=== PATIENT | female | born 1940 | race Caucasian/White ===

== ENCOUNTER → 2016-06-15 | Outpatient (CLI) | payer OTHER ==
[~2016-06-15] MED LIST: CHOL100010 PO; CYAN100028 PO; DIVA250T4 PO; FLUO20CA35 PO; LEVO100T PO; OLAN-102 PO
--- NOTE | 2016-06-15 15:22 | MAMMOGRAPHY REPORT ---
BILATERAL DIGITAL SCREENING MAMMOGRAM WITH CAD: 06/15/2016 TECHNIQUE: Current study was also evaluated with a Computer Aided Detection (CAD) system. Bilatera l CC and MLO views were obtained. COMPARISON: Comparison is made to exams dated: 06/10/2015 mammogram, 06/08/2014 mammogram - [facility], and 05/02/2010 mammogram. BREAST COMPOSITION: The tissue of both breasts is heterogeneously dense, which may obscure small ma sses. FINDINGS: No suspicious masses, calcifications, or areas of architectural distortion are noted in e ither breast. There has been no significant interval change compared to prior exams. IMPRESSION: ACR BI-RADS CATEGORY 1: NEGATIVE There is no mammographic evidence of malignancy. A 1 year screening mammogram is recommended. The p atient will receive written notification of the results. Approximately 10% of breast cancers are not detected with mammography. A negative mammographic repor t should not delay biopsy if a clinically suggestive mass is present. Kristy Meyers M.D. ah/:06/15/2016 14:41:10 Material Control Manager: Zena BACA(R)(M), [facility] letter sent: Normal 1/2 BI-RADS Code: ACR BI-RADS Category 1: Negative
== END | disposition home or self-care (01) ==
LOC: C.MAMM 14:21
PROVIDERS: ATTEND Internal Medicine
DX: Z12.31 Encounter for screening mammogram for malignant neoplasm of breast (principal)

== ENCOUNTER → 2016-09-18 | Outpatient (CLI) | payer OTHER ==
[2016-09-18 17:32] LABS: BASO % 0.8 %; BASO ABS # 0.04 K/uL (0-0.2); COMPLETE YES; HEMATOCRIT 37.2 % (37-47); LYMPH % 41.4 %; LYMPH ABS # 2.09 K/uL (1.2-3.4); MEAN CELL VOLUME 97.1 fL (80-100); MEAN CORPUSCULAR HEMOGLOBIN 32.6 pg (25-34); MEAN CORPUSCULAR HGB CONC 33.6 g/dl (32-36); MEAN PLATELET VOLUME 10.9 fL (7.4-10.4); MONO % 7.1 %; NEUT % 49.7 %; PLATELET COUNT 202 K/uL (130-400); RED BLOOD COUNT 3.83 M/uL (4.2-5.4); WHITE BLOOD COUNT 5.05 K/uL (4.8-10.8)
[2016-09-18 18:45] LABS: ALT/SGPT 27 U/L (12-78); BLOOD UREA NITROGEN 11 mg/dl (7-18); BUN/CREATININE RATIO 12.4 (10-20); CALCIUM 8.9 mg/dl (8.5-10.1); CARBON DIOXIDE 27 mmol/L (21-32); CHLORIDE 106 mmol/L (98-107); CREATININE 0.85 mg/dl (0.60-1.20); GLUCOSE 84 mg/dl (70-99); POTASSIUM 3.9 mmol/L (3.5-5.1); SODIUM 142 mmol/L (136-145); TRIGLYCERIDES 73 mg/dl (0-150); VERY LOW DENSITY LIPOPROT CALC 15 mg/dl
[2016-09-18 18:56] LABS: ALB/GLOB RATIO 1.4 (0.9-2); ALKALINE PHOSPHATASE 75 U/L (45-117); AST/SGOT 18 U/L (15-37); CHOLESTEROL 186 mg/dl (0-200); CHOLESTEROL/HDL RATIO 2.6; HDL CHOLESTEROL 72 mg/dl; LDL CHOLESTEROL CALCULATED 99 mg/dl; THYROID STIMULATING HORMONE 0.472 uIu/ml (0.300-4.500)
--- NOTE | 2016-09-25 10:08 | CODING QUERY MEDICAL NECESSITY ---
CQSUPPORTING DIAGNOSIS NEEDED A supporting diagnosis is required for the test/procedure performed on this patient in order for us to be reimbursed by the patient's insurance. Please provide a supporting diagnosis for the following test/procedure listed below next to the test name along with your signature. *If there is no additional diagnosis for this patient that would support the following test/procedure please document that below next to the test/procedure. Test(s)/Procedure(s) that require a supporting diagnosis: DOS 09/18/16 VITAMIN B12 Provider Signature: Date: Thank you Sophia Jennings [employer] Once completed, please kindly fax back to [phone] For questions please call [phone]
== END | disposition home or self-care (01) ==
LOC: C.LAB1850 16:37
PROVIDERS: ATTEND Internal Medicine
DX: E03.9 Hypothyroidism, unspecified (principal); F30.9 Manic episode, unspecified; E78.5 Hyperlipidemia, unspecified; D72.819 Decreased white blood cell count, unspecified; M25.50 Pain in unspecified joint; E55.9 Vitamin D deficiency, unspecified; G62.9 Polyneuropathy, unspecified

== ENCOUNTER → 2016-09-21 | Outpatient (CLI) | payer OTHER | END | disposition home or self-care (01) | LOC: C.MAMM 14:37 | PROVIDERS: ATTEND Internal Medicine | DX: Z87.81 Personal history of (healed) traumatic fracture (principal); M81.0 Age-related osteoporosis without current pathological fracture; M85.89 Other specified disorders of bone density and structure, multiple sites ==

== ENCOUNTER → 2017-06-20 | Outpatient (CLI) | payer OTHER ==
--- NOTE | 2017-06-21 15:26 | MAMMOGRAPHY REPORT ---
BILATERAL DIGITAL SCREENING MAMMOGRAM TOMOSYNTHESIS WITH CAD: 06/20/2017 CLINICAL HISTORY: Routine screening. Patient has no complaints. TECHNIQUE: Breast tomosynthesis in addition to standard 2D mammography was performed. Current study was also evaluated with a Computer Aided Detection (CAD) system. COMPARISON: Comparison is made to exams dated: 06/15/2016 mammogram, 06/10/2015 mammogram, and 5 mammogram - [facility]. BREAST COMPOSITION: The tissue of both breasts is heterogeneously dense, which may obscure small mas ses. FINDINGS: No suspicious masses, calcifications, or areas of architectural distortion are noted in ei ther breast. There has been no significant interval change compared to prior exams. IMPRESSION: ACR BI-RADS CATEGORY 1: NEGATIVE There is no mammographic evidence of malignancy. A 1 year screening mammogram is recommended. The pa tient will receive written notification of the results. Approximately 10% of breast cancers are not detected with mammography. A negative mammographic report should not delay biopsy if a clinically suggestive mass is present. Kristy Meyers M.D. ah/:06/20/2017 15:02:49 [employer] Internship: Sasha BACA(R)(M), [facility] letter sent: Normal 1/2 BI-RADS Code: ACR BI-RADS Category 1: Negative
== END | disposition home or self-care (01) ==
LOC: C.MAMM 14:39
PROVIDERS: ATTEND Internal Medicine
DX: Z12.31 Encounter for screening mammogram for malignant neoplasm of breast (principal)

== ENCOUNTER → 2017-09-24 | Outpatient (CLI) | payer OTHER ==
[2017-09-24 17:33] LABS: BASO % 0.3 %; BASO ABS # 0.02 K/uL (0-0.2); EOS % 0.3 %; EOS ABS # 0.02 K/uL (0-0.5); HEMATOCRIT 38.4 % (37-47); IG# 0.02 K/uL (0.00-0.02); LYMPH % 30.5 %; LYMPH ABS # 2.04 K/uL (1.2-3.4); MEAN CELL VOLUME 93.2 fL (80-100); MEAN CORPUSCULAR HEMOGLOBIN 31.6 pg (25-34); MEAN CORPUSCULAR HGB CONC 33.9 g/dl (32-36); MEAN PLATELET VOLUME 11.1 fL (7.4-10.4); MONO % 6.6 %; MONO ABS # 0.44 K/uL (0.11-0.59); NEUT ABS # 4.14 K/uL (1.4-6.5); PLATELET COUNT 226 K/uL (130-400); RED CELL DISTRIBUTION WIDTH CV 13.1 % (11.5-14.5); RED CELL DISTRIBUTION WIDTH SD 44.6 fL (36.4-46.3); WHITE BLOOD COUNT 6.68 K/uL (4.8-10.8)
[2017-09-24 18:02] LABS: ALBUMIN 3.9 gm/dl (3.4-5.0); ALT/SGPT 33 U/L (12-78); AST/SGOT 21 U/L (15-37); BLOOD UREA NITROGEN 13 mg/dl (7-18); CALCIUM 8.9 mg/dl (8.5-10.1); CARBON DIOXIDE 26 mmol/L (21-32); CREATININE 1.01 mg/dl (0.60-1.20); GLUCOSE 89 mg/dl (70-99); POTASSIUM 3.9 mmol/L (3.5-5.1); SODIUM 138 mmol/L (136-145)
[2017-09-24 18:13] LABS: ALKALINE PHOSPHATASE 87 U/L (45-117); CHOLESTEROL 198 mg/dl (0-200); LDL CHOLESTEROL CALCULATED 107 mg/dl; TOTAL PROTEIN 7.3 gm/dl (6.4-8.2)
== END | disposition home or self-care (01) ==
LOC: C.LAB1850 15:58
PROVIDERS: ATTEND Internal Medicine
DX: E55.9 Vitamin D deficiency, unspecified (principal); D72.819 Decreased white blood cell count, unspecified; F30.9 Manic episode, unspecified; E78.5 Hyperlipidemia, unspecified; E03.9 Hypothyroidism, unspecified

== ENCOUNTER 2019-09-03 16:11 | Observation (INO) ==
[2019-09-03 17:35] LABS: Basophils # (auto) 0.03 K/uL (0-0.2); Basophils % (auto) 0.5 %; Eosinophils # (auto) 0.03 K/uL (0-0.5); Eosinophils % (auto) 0.5 %; Hematocrit (blood only) 39.1 % (37-47); Hemoglobin 13.1 g/dL (12.0-16.0); Immature Granulocytes # (auto) 0.01 K/uL (0.00-0.02); Immature Granulocytes % (auto) 0.2 %; Lymphocytes # (auto) 1.57 K/uL (1.2-3.4); Lymphocytes % (auto) 26.7 %; Mean Corpuscular Hemoglobin 32.3 pg (25-34); Mean Corpuscular Hgb Conc 33.5 g/dL (32-36); Mean Corpuscular Volume 96.5 fL (80-100); Mean Platelet Volume 10.1 fL (7.4-10.4); Monocytes # (auto) 0.28 K/uL (0.11-0.59); Monocytes % (auto) 4.8 %; Neutrophils # (auto) 3.97 K/uL (1.4-6.5); Neutrophils % (auto) 67.3 %; Platelet Count 239 K/uL (130-400); RDW Coefficient of Variation 13.2 % (11.5-14.5); RDW Standard Deviation 46.4 fL (36.4-46.3); Red Blood Count 4.05 M/uL (4.2-5.4); White Blood Count 5.89 K/uL (4.8-10.8)
--- NOTE | 2019-09-03 17:40 | CT Scan Report ---
CT head/brain wo con CLINICAL HISTORY: 78 years-old Female with Stroke evaluation . Acute strokelike symptoms TECHNIQUE: Multiple axial CT images of the head were obtained without contrast. A dose lowering tech nique was utilized adhering to the principles of ALARA. CT DOSE: 537.48 mGy.cm COMPARISON: None. FINDINGS: No acute intracranial hemorrhage, midline shift, intracranial mass, hydrocephalus, territorial ischem ia or abnormal extra-axial collection. Mild patchy white matter hypodensities suggest probable chroni c microvascular ischemic disease. The calvarium is intact. The paranasal sinuses, mastoid air cells, and middle ear cavities are clear . IMPRESSION: No acute intracranial abnormality. ACT 112: Negative or not required by law. The above report was generated using voice recognition software. It may contain grammatical, syntax o r spelling errors. Electronically signed by: Rudi Roach M.D. 09/03/2019 5:39 PM
[2019-09-03 17:43] LABS: INR 1.1 (0.9-1.1); Partial Thromboplastin Ratio 0.9; Partial Thromboplastin Time 25.8 Seconds (21.0-31.0); Prothrombin Time 11.1 Seconds (9.0-12.0)
[2019-09-03 17:52] LABS: Alanine Aminotransferase 29 U/L (12-78); Aspartate Aminotransferase 21 U/L (15-37); BUN Creatinine Ratio 19.4 (10-20); Blood Urea Nitrogen 19 mg/dl (7-18); Calcium 9.6 mg/dl (8.5-10.1); Carbon Dioxide 29 mmol/L (21-32); Chloride 107 mmol/L (98-107); Creatinine Clr Calc Pharmacy 47.4 ml/min; Est GFR (African American) 66.6; Est GFR (Non-African American) 57.4; Glucose 94 mg/dl (70-99); Magnesium 2.3 mg/dl (1.8-2.4); Potassium 3.9 mmol/L (3.5-5.1); Sodium 139 mmol/L (136-145)
[2019-09-03 17:57] LABS: Albumin Globulin Ratio 1.1 (0.9-2); Alkaline Phosphatase 100 U/L (45-117); Bilirubin,Total 0.2 mg/dl (0.2-1); Globulin 3.5 gm/dl (2.5-4.0); Total Protein 7.5 gm/dl (6.4-8.2); Troponin I < 0.015 ng/ml (0-0.045)
--- NOTE | 2019-09-03 19:11 | History & Physical Report ---
Date of Service September 03, 2019 Assessment & Plan (1) TIA (transient ischemic attack): Patient will be admitted under stroke protocol. Check MRI/MRA of the brain and extracranial vessels. Check 2D echo. Continue neurochecks overnight per protocol. Bedside swallowing eval, can advance diet if the patient passes. Currently asymptomatic, PT/OT per protocol. I did discuss medication with the patient, she tells me she has had previous GI bleeding with aspirin and we will therefore hold this for that reason. Consult neurology. Further management as noted below. (2) Hyperlipidemia: Has hyperlipidemia noted in her history but does not appear to be on statin medication. Will check fasting lipids and start patient on Lipitor 40 mg daily. Consider an increase depending on results. (3) Hypothyroidism: Patient on levothyroxine 100 mcg daily, can continue as noted. Check TSH. (4) Bipolar 1 disorder: Patient is on fluoxetine along with Zyprexa nightly as needed. Will order these as well. History of Present Illness Primary Care Provider: Raúl Kong MD This is a 78-year-old female with past medical history of hyperlipidemia, bipolar disorder, depression that presents today complaining of a transient left-sided hemiparesis. Patient is good historian. Patient tells me she was feeling fine when she woke up at approximately 930 this morning. She noted that her left hand was flaccid. She could not move her arm but felt numb up to her left shoulder. She try to get out of bed and noted similar issue with her foot. She had no motor control in her left foot but her leg was only numb. She ambulated to the kitchen and tried heat and apple. At that time she noted that she had right-sided facial droop and was salivating herself. She was unable to treated for. When asked what she did next, she told me she sat down and thought about things for approximately 30 minutes when the symptoms resolved very quickly and completely. She tells me she called her daughter in [place] and discussed the case with her. She recommended calling her doctor. She then called her primary care physician's office and was advised to present to the emergency room for further evaluation. At the time of my evaluation, the patient is having no further neurological symptoms. She is in no cardiopulmonary distress was quietly reading a book. She denies any further facial droop, weakness, or other issues. She also denies any headache. Work-up so far has been negative. Allergies Allergy/AdvReac Type Severity Reaction Status Date / Time Penicillins Allergy Unknown UNKN Verified 09/03/19 17:13 NSAIDS (Non-Steroidal AdvReac Intermediate HX OF ULCER Verified 09/03/19 17:13 Anti-Inflamma ampicillin AdvReac Unknown Verified 09/03/19 17:13 aripiprazole [From Abilify] AdvReac Unknown Verified 09/03/19 17:13 diphenhydramine AdvReac Unknown Verified 09/03/19 17:13 erythromycin base AdvReac Unresponsiv Verified 09/03/19 17:13 e lithium AdvReac Unknown Verified 09/03/19 17:13 Home Medications Home Medications Medication Instructions Recorded Confirmed Type acetaminophen 500 mg tablet 500 - 1,000 mg PO Q6H PRN 03/30/19 09/03/19 History levothyroxine 100 mcg tablet 100 mcg PO DAILY #90 tab 06/22/19 09/03/19 Rx Algae Michael 2 tabs PO BID 09/03/19 09/03/19 History fluoxetine 40 mg PO DAILY 09/03/19 09/03/19 History olanzapine [Zyprexa] 10 mg PO QPM PRN 09/03/19 09/03/19 History Past Med/Surg History Social History Preferred Language: Greenlandic Communication Ability: Effective Visual Impairment: No Limitations Hearing Ability: Normal marital status: Single current occupational status: retired Feels Safe at Home: Yes Smoking Status: Never smoker Hx Alcohol Use: Yes (social) Hx Substance Use: No Seatbelt Use: always Review of Systems Constitutional: no fever, no chills, no weakness, no weight loss and no weight gain Eyes: as per Subjective / HPI Respiratory: no cough, no chest congestion, no dyspnea and no dyspnea on exertion Cardiovascular: no chest pain, no orthopnea, no palpitations, no lightheadedness and no edema Gastrointestinal: no abdominal pain, no nausea, no vomiting, no constipation and no diarrhea/loose stools Genitourinary: no dysuria, no difficulty urinating, no urinary frequency, no urinary hesitancy, no urinary urgency and no flank pain Musculoskeletal: no back pain, no neck pain, no joint pain, no stiffness and no myalgia Integumentary: no rash Neurologic: + gait abnormality, + paralysis, + loss of sensation, + numbness and + paresthesia; no unsteadiness, no falls and no generalized weakness Physical Exam Constitutional: cooperative; no acute distress Neck: trachea midline, no thyromegaly Respiratory: normal respiratory effort Auscultation: lungs clear to auscultation bilaterally; no crackles, no rales, no rhonchi and no wheezes Cardiovascular: Rate/Rhythm: regular rate and regular rhythm Heart Sounds: normal S1 and normal S2 Vessels: no JVD and no carotid bruit Gastrointestinal (Abdomen): Inspection/Auscultation: abdomen normal to inspection Percussion/Palpation: abdomen soft; abdomen nontender, no guarding, abdomen not rigid and no hepatosplenomegaly Skin: no rashes, warm and dry Neurologic: patellar DTR's 2+ bilat, sensation intact and PERRL, EOMI, accommodation nl, no face palsy, no dysarthria Results & Data Results & Data ([facility]) Vital Signs (Past 12 Hours) Vital Signs Temp Pulse Pulse Resp BP BP Pulse Ox 09/03/19 18:38 58 L 18 135/71 99 09/03/19 16:20 37.1 C 72 20 127/67 98 Laboratory Results WBCs 5.8, hemoglobin 13.1, hematocrit 39.1, platelets of 239. INR 1.1. Sodium 139, potassium 3.9, chloride 107, CO2 29, BUN of 19, creatinine 0.96. Glucose 94. Calcium 9.6. Total bilirubin 0.2 rest of a LFTs are normal. Troponin is nondetectable. Diagnostic Findings CT head/brain wo con CLINICAL HISTORY: 78 years-old Female with Stroke evaluation . Acute strokelike symptoms TECHNIQUE: Multiple axial CT images of the head were obtained without contrast. A dose lowering technique was utilized adhering to the principles of ALARA. CT DOSE: 537.48 mGy.cm COMPARISON: None. FINDINGS: No acute intracranial hemorrhage, midline shift, intracranial mass, hydrocephalus, territorial ischemia or abnormal extra-axial collection. Mild patchy white matter hypodensities suggest probable chronic microvascular ischemic disease. The calvarium is intact. The paranasal sinuses, mastoid air cells, and middle ear cavities are clear. IMPRESSION: No acute intracranial abnormality. PG Care Time/CCT Total # of Minutes Spent Total Time Spent with Patient: Total time spent is greater than 50% in coordination of care (as documented) at patient's floor/unit and/or counseling patient: Coding Level of Care Code 50466 OBS Care - Level 3 Diagnoses TIA (transient ischemic attack) G45.9 Hyperlipidemia E78.5 Hypothyroidism E03.9 Bipolar 1 disorder F31.9
[2019-09-03] MEDS ORDERED: POLYETHYLENE (MIRALAX) 17 GM PACK PO PRN (20:51)
[2019-09-03] MEDS ORDERED: ONDANSETRON INJ 2 MG/ML 2 ML VIAL IV PRN (20:51)
[2019-09-03] MEDS ORDERED: ACETAMINOPHEN 325 MG TAB PO PRN (20:51)
[2019-09-03] MEDS ORDERED: OLANZapine 10 MG TAB PO PRN (20:51)
[2019-09-03] MEDS ORDERED: PHARMACIST DISCHARGE MED REC CONSULT PRN (20:51)
[2019-09-03] MEDS ORDERED: MAGNESIUM HYDROXIDE SUSP 30 ML UDC PO PRN (20:51)
[2019-09-03] MEDS ORDERED: LORazepam 1 MG TAB PO STA (22:26)
[2019-09-03] MEDS ORDERED: GADOBUTROL 65ML VIAL IV PRN (23:22)
--- NOTE | 2019-09-04 00:09 | Emergency Department Note ---
History of Present Illness General Chief complaint: Stroke/CVA Symptoms Stated complaint: POSSIBLE STROKE THIS MORNING Source: patient Mode of arrival: ambulatory Limitations: no limitations History of Present Illness Provider complaint: CVA sx Onset (ago): hour(s) 7 This patient is a 78-year-old female who presents to the emergency department with complaints of 45 minutes of left arm and leg "paralysis" in addition to right-sided facial droop, slurred speech and difficulty chewing. Patient states she awoke with the symptoms, noticed tingling and heavy sensation prior to getting out of bed. She states she examined herself in the mirror and spoke to herself to evaluate the other symptoms. Patient denies ever having a stroke in the past. She denies any recent illness, fever, headache, vomiting. Patient states his symptoms suddenly resolved and have not returned. She became more concerned throughout the day that she may have experienced a stroke and presented to the emergency department. Home Medications Home Medications Medication Instructions Recorded Confirmed Type acetaminophen 500 mg tablet 500 - 1,000 mg PO Q6H PRN 03/30/19 09/03/19 History levothyroxine 100 mcg tablet 100 mcg PO DAILY #90 tab 06/22/19 09/03/19 Rx Algae Michael 2 tabs PO BID 09/03/19 09/03/19 History fluoxetine 40 mg PO DAILY 09/03/19 09/03/19 History olanzapine [Zyprexa] 10 mg PO QPM PRN 09/03/19 09/03/19 History Allergies Allergy/AdvReac Type Severity Reaction Status Date / Time Penicillins Allergy Unknown UNKN Verified 09/03/19 17:13 NSAIDS (Non-Steroidal AdvReac Intermediate HX OF ULCER Verified 09/03/19 17:13 Anti-Inflamma ampicillin AdvReac Unknown Verified 09/03/19 17:13 aripiprazole [From Abilify] AdvReac Unknown Verified 09/03/19 17:13 diphenhydramine AdvReac Unknown Verified 09/03/19 17:13 erythromycin base AdvReac Unresponsiv Verified 09/03/19 17:13 e lithium AdvReac Unknown Verified 09/03/19 17:13 Past Med/Surg History Medical History (Updated 09/04/19 @ 00:17 by Anna Gutierrez MD) Bipolar 1 disorder (Chronic) Cerebrovascular small vessel disease (Acute) Depression (Chronic) Hyperlipidemia (Acute) Hypothyroidism (Chronic) Intention tremor (Acute) Mitral regurgitation Osteoarthritis (Acute) Osteoporosis Osteoporosis Suicidal ideation (Resolved) Systolic murmur (Acute) TIA (transient ischemic attack) (Acute) Vitamin D deficiency disease (Acute) Surgical History S/P ovarian cystectomy S/P tubal ligation Family History Father Myocardial infarction Hypertension Mother Alcoholism Bipolar disorder Hypothyroidism Lung cancer Grandfather (Paternal) Cancer Grandmother (Paternal) Stroke Social History Preferred Language: Japanese Communication Ability: Effective Visual Impairment: No Limitations Hearing Ability: Normal Barn Operator Required: No Beliefs That Will Affect Care: None marital status: Single Current Living Situation: Alone Current Living Situation Comment: lives in an apartment current occupational status: retired Other Information That Helps Us Care for You: No Feels Safe at Home: Yes Safety Concerns: Feels Safe At This Time Smoking Status: Never smoker Do You Dip or Chew Tobacco: No ; Second Hand Exposure: Yes ; Tobacco Cessation Education Requested by Patient: No Hx Alcohol Use: Yes Alcohol type: wine Hx Substance Use: No Seatbelt Use: always Review of Systems See HPI for pertinent positives & negatives. and A total of 10 systems reviewed and were otherwise negative Physical Exam Vital Signs Vital Signs - 24 hr 09/03/19 16:20 09/03/19 18:38 Temperature 37.1 C Temperature Source Oral Pulse Rate 72 Pulse Rate [Apical] 58 L Pulse Rhythm Regular Pulse Strength Normal Respiratory Rate 20 18 Respiratory Effort / Characteristics Non-Labored Spontaneous Respiratory Depth Normal Respiratory Pattern Regular Blood Pressure 127/67 Blood Pressure [Right Arm] 135/71 Blood Pressure Mean 87 Blood Pressure Mean [Right Arm] 92 Blood Pressure Position Sitting Pulse Oximetry 98 99 Oxygen Delivery Method Room Air Room Air Sepsis Recent Fever Within 48 Hours No Sepsis New/Unexplained Change in Mental Status No Sepsis Action Taken by Nursing No Action Required Vital signs reviewed. General: Well-appearing 78 yo female, in no significant distress. HEENT: No scleral icterus, PERRLA, neck supple. Atraumatic. Cardiovascular: Regular rate and rhythm, no extra sounds. Pulmonary: Clear to auscultation bilaterally, normal work of breathing. Abdomen: Soft, nontender, nondistended, positive bowel sounds. Musculoskeletal: Atraumatic, no peripheral edema. Neurologic: Patient awake alert and oriented x 3, full strength in all 4 extremities. Cranial nerves 2 through 12 grossly intact. Intact [id number], negative pronator drift. Skin: Warm, dry, no rash Course Administered Medications Gadobutrol (Gadavist 65ml) 7.5 ml IV ONCE PRN PRN Reason: Interaction Checking Stop: 09/07/19 23:21 Last Admin: 09/03/19 23:22 Dose: 7.5 ml Documented by: [id number] Discontinued Medications Lorazepam (Ativan) 1 mg PO NOW STA Stop: 09/03/19 22:27 Last Admin: 09/03/19 22:35 Dose: 1 mg Documented by: [id number] Medical Decision Making Differential Diagnosis Differential includes acute coronary syndrome, myocardial infarction, CVA, TIA, anemia, infection, pneumonia, UTI, pyelonephritis, poor nutrition, dehydration, electrolyte disturbance,hypoglycemia. Home Medications Current Medication List: was personally reviewed by me Laboratory Data Attestation: I reviewed the patient's lab results. Result diagrams: 09/03/19 17:18 09/03/19 17:18 Lab Results 09/03/19 09/03/19 09/03/19 Range/Units 17:18 17:18 17:18 WBC 5.89 (4.8-10.8) K/uL RBC 4.05 L (4.2-5.4) M/uL Hgb 13.1 (12.0-16.0) g/dL Hct 39.1 (37-47) % MCV 96.5 (80-100) fL MCH 32.3 (25-34) pg MCHC 33.5 (32-36) g/dL RDW Std Deviation 46.4 H (36.4-46.3) fL RDW Coeff of Santana 13.2 (11.5-14.5) % Plt Count 239 (130-400) K/uL MPV 10.1 (7.4-10.4) fL Immature Gran % (Auto) 0.2 % Neut % (Auto) 67.3 % Lymph % (Auto) 26.7 % [place]wey % (Auto) 4.8 % Eos % (Auto) 0.5 % Baso % (Auto) 0.5 % Immature Gran # (Auto) 0.01 (0.00-0.02) K/uL Neut # (Auto) 3.97 (1.4-6.5) K/uL Lymph # (Auto) 1.57 (1.2-3.4) K/uL [place]wey # (Auto) 0.28 (0.11-0.59) K/uL Eos # (Auto) 0.03 (0-0.5) K/uL Baso # (Auto) 0.03 (0-0.2) K/uL PT 11.1 (9.0-12.0) Seconds INR 1.1 (0.9-1.1) APTT 25.8 (21.0-31.0) Seconds PTT Ratio 0.9 Sodium 139 (136-145) mmol/L Potassium 3.9 (3.5-5.1) mmol/L Chloride 107 (98-107) mmol/L Carbon Dioxide 29 (21-32) mmol/L Anion Gap 4.0 (3-11) BUN 19 H (7-18) mg/dl Creatinine 0.96 (0.6-1.2) mg/dl Est Cr Clr Drug Dosing 47.4 ml/min Est GFR ( Amer) 66.6 Est GFR (Non-Af Amer) 57.4 BUN/Creatinine Ratio 19.4 (10-20) Glucose 94 (70-99) mg/dl Calcium 9.6 (8.5-10.1) mg/dl Magnesium 2.3 (1.8-2.4) mg/dl Total Bilirubin 0.2 (0.2-1) mg/dl AST 21 (15-37) U/L ALT 29 (12-78) U/L Alkaline Phosphatase 100 (45-117) U/L Troponin I < 0.015 (0-0.045) ng/ml Total Protein 7.5 (6.4-8.2) gm/dl Albumin 4.0 (3.4-5.0) gm/dl Globulin 3.5 (2.5-4.0) gm/dl Albumin/Globulin Ratio 1.1 (0.9-2) Imaging Data Radiologist's Impression: CT head/brain wo con CLINICAL HISTORY: 78 years-old Female with Stroke evaluation . Acute strokelike symptoms TECHNIQUE: Multiple axial CT images of the head were obtained without contrast. A dose lowering technique was utilized adhering to the principles of ALARA. CT DOSE: 537.48 mGy.cm COMPARISON: None. FINDINGS: No acute intracranial hemorrhage, midline shift, intracranial mass, hydrocephalus, territorial ischemia or abnormal extra-axial collection. Mild patchy white matter hypodensities suggest probable chronic microvascular ischemic disease. The calvarium is intact. The paranasal sinuses, mastoid air cells, and middle ear cavities are clear. IMPRESSION: No acute intracranial abnormality. ACT 112: Negative or not required by law. The above report was generated using voice recognition software. It may contain grammatical, syntax or spelling errors. Electronically signed by: Rudi Roach M.D. 09/03/2019 5:39 PM Dictated: 09/03/[id number] Transcribed: 09/03/191736 ECG Data Attestation: I personally reviewed and interpreted this ECG as follows: Indication: + other (CVA sx) Rate (beats per minute): 61 Rhythm: + normal sinus ECG Intervals/blocks: + Prolonged QT (467); no Normal QRS (low voltage) ECG [place]: + Normal ECG ST segments: + Normal ST segments ECG Findings: no PACs and no PVCs Blood Pressure Blood Pressure Findings: Normal blood pressure Blood Pressure Disposition: did not require urgent referral MDM Narrative An order for cardiac monitoring was placed and the patient is found to be in a normal sinus rhythm at 60 bpm. This patient was evaluated and appeared to be in no significant distress. Patient's physical exam is completely unrevealing. Neurologic examination is intact. Head CT was performed and is negative for acute pathology. EKG reveals a sinus rhythm. Patient's laboratory work is fairly reassuring. Given the p atnata's age and the severity of symptoms, I feel she should be evaluated by the hospitalist service for further stroke evaluation. Patient is agreeable with the plan. Dr. Corea of the hospitalist service was consulted for further management. Impression & Plan TIA (transient ischemic attack) Discharge Plan Visit Data *Final* Discharge Date/Time: 09/03/19 20:25 Chief Complaint: Stroke/CVA Symptoms Stated Complaint: POSSIBLE STROKE THIS MORNING ED Provider: Anna Gutierrez Discharge Problem: TIA (transient ischemic attack) Patient Disposition: Admitted As Inpatient Discharge Instructions Interventions: ED Discharge Assessment Last Done: 09/03/19 20:25
[2019-09-04 06:13] LABS: Estimated Average Glucose 108 mg/dl; Hemoglobin A1C 5.4 % (4.5-5.6)
[2019-09-04] MEDS ORDERED: LEVOTHYROXINE SODIUM 100 MCG TABLET PO SCH (06:30)
[2019-09-04 06:46] LABS: Basophils # (auto) 0.03 K/uL (0-0.2); Basophils % (auto) 0.6 %; Eosinophils # (auto) 0.08 K/uL (0-0.5); Eosinophils % (auto) 1.5 %; Hematocrit (blood only) 34.7 % (37-47); Hemoglobin 11.6 g/dL (12.0-16.0); Immature Granulocytes # (auto) 0.01 K/uL (0.00-0.02); Immature Granulocytes % (auto) 0.2 %; Lymphocytes # (auto) 2.12 K/uL (1.2-3.4); Mean Corpuscular Hemoglobin 32.3 pg (25-34); Mean Corpuscular Hgb Conc 33.4 g/dL (32-36); Mean Corpuscular Volume 96.7 fL (80-100); Mean Platelet Volume 10.3 fL (7.4-10.4); Monocytes # (auto) 0.45 K/uL (0.11-0.59); Monocytes % (auto) 8.3 %; Neutrophils # (auto) 2.75 K/uL (1.4-6.5); Neutrophils % (auto) 50.4 %; Platelet Count 210 K/uL (130-400); RDW Coefficient of Variation 13.1 % (11.5-14.5); Red Blood Count 3.59 M/uL (4.2-5.4); White Blood Count 5.44 K/uL (4.8-10.8)
--- NOTE | 2019-09-04 06:55 | Magnetic Resonance Report ---
MR angio head wo con CLINICAL HISTORY: 78 years-old Female presenting with stroke, left-sided numbness, now resolved, slur red speech. TECHNIQUE: MR angiography of the head was performed without the use of intravenous contrast using 3-D [id number]-[id number] technique. 3-D volumetric and/or maximum intensity projection (MIP) images were subse quently reconstructed for review. IV contrast: None. COMPARISON: Noncontrast CT head from the same day. FINDINGS: Localizer images: Unremarkable. Anterior circulation: Intracranial portions of the internal carotid arteries patent to the level of t he termini. Anterior cerebral arteries patent. Middle cerebral arteries patent. Anterior communicatin g artery patent. Posterior circulation: Codominant vertebral arteries. Intradural portions of the vertebral arteries p atent. Posterior inferior cerebellar arteries patent. Basilar artery patent. Anterior inferior cerebe llar arteries poorly visualized. Superior cerebellar arteries patent. Posterior cerebral arteries (PC A) patent with a or near origin of the right DOCTOR OF RADIOLOGY. Right posterior communicating artery (P -comm) patent. Left P-comm hypoplastic or aplastic. IMPRESSION: 1. No significant stenosis, aneurysm, or focal vessel occlusion. ACT 112: Negative or not required by law. Electronically signed by: Osei West M.D. 09/04/2019 6:54 AM
[2019-09-04 07:13] LABS: BUN Creatinine Ratio 20.1 (10-20); Calcium 8.5 mg/dl (8.5-10.1); Creatinine Clr Calc Pharmacy 50.5 ml/min
--- NOTE | 2019-09-04 07:23 | Magnetic Resonance Report ---
MR brain wo con CLINICAL HISTORY: 78 years-old Female presenting with TIA, left-sided numbness earlier today now reso lved, slurred speech this morning. TECHNIQUE: Multisequence, multiplanar MR imaging of the brain was performed without the use of intrav enous contrast. IV contrast: None. COMPARISON: CT head performed earlier the same day. FINDINGS: Localizer images: Unremarkable. Bone marrow signal intensity within the calvarium within normal limits. Normal midline sagittal structures. Ventricles and sulci normal in size. No mass effect or midline sh ift. No restricted diffusion or hemorrhage. Periventricular and subcortical white matter T2/FLAIR hyp erintensity, nonspecific but likely indicative of chronic small vessel ischemic change. No extra-axial fluid collection. T2 skull base flow voids preserved. IMPRESSION: 1. Chronic small vessel ischemic change. No acute intracranial abnormality. ACT 112: Negative or not required by law. Electronically signed by: Osei West M.D. 09/04/2019 7:22 AM
--- NOTE | 2019-09-04 07:34 | Magnetic Resonance Report ---
MR angio neck wo/w con CLINICAL HISTORY: 78 years-old Female presenting with stroke symptoms. TECHNIQUE: MR angiography of the neck was performed before and after the administration of intravenou s contrast. 3-D volumetric and/or maximum intensity projection (MIP) images were subsequently reconst ructed for review. IV contrast: 7.5 mL of Gadavist. Stenosis measurements were based on NASCET-like c riteria (distal lumen diameter as the denominator for stenosis measurement). COMPARISON: None. FINDINGS: Localizer images: Unremarkable. Aortic arch: Atherosclerosis of the three-vessel aortic arch. Innominate artery: Patent. Right subclavian artery: Grossly patent though pulsation artifact is suspected in the mid to distal p ortion. Right common carotid artery: Patent. Right internal and external carotid arteries: Right carotid bifurcation patent. Right internal and ex ternal carotid arteries widely patent. Left common carotid artery: Pulsation artifact versus mild luminal stenosis along the mid to distal p ortion. This is not evident on precontrast imaging and is favored to represent artifact. Similar but less severe appearance is noted in this region on the right, again favoring artifact. Left internal and external carotid arteries: Left carotid bifurcation patent. Left internal and exter nal carotid arteries widely patent. Left subclavian artery: Patent. Vertebral arteries: Codominant vertebral arteries. Origins and courses of the bilateral vertebral art eries patent. Other: Limited intracranial evaluation within normal limits. Soft tissues of the neck normal allowing for the phase of contrast. IMPRESSION: 1. Pulsation artifact likely accounts for the appearance of the mid to distal common carotid arterie s. This could be confirmed with carotid Doppler ultrasound if there is clinical concern. No convincin g evidence of dissection, significant stenosis, or focal vessel occlusion. ACT 112: Negative or not required by law. Electronically signed by: Osei West M.D. 09/04/2019 7:32 AM
[2019-09-04] MEDS ORDERED: FLUOXETINE HCL 20 MG CAP PO SCH (09:00)
[2019-09-04] MEDS ORDERED: ATORVASTATIN 40 MG TAB PO SCH (09:00)
[2019-09-04] MEDS ORDERED: STROKE PATIENT DISCHARGE STA (10:56)
--- NOTE | 2019-09-04 11:29 | XCELERA ---
[id number] \\[email or web address]\[id number]
[2019-09-04 11:39] VITALS: BP 94/51; PULSE 61; TEMP 98.8; O2SAT 95
--- NOTE | 2019-09-04 12:02 | Pharmacy Report ---
Pharmacist Stroke Counseling - Date of Service September 04, 2019 - Scope: Pharmacy has been consulted to provide medication discharge counseling for this patient admitted with transient ischemic attack as per the Pharmacist Discharge Counseling for Stroke Patients Protocol. - Medications on Discharge: Home Medications Medication Instructions Recorded Confirmed acetaminophen 500 mg tablet 500 - 1,000 mg PO Q6H PRN 03/30/19 09/03/19 Algae Michael 2 tabs PO BID 09/03/19 09/03/19 fluoxetine 40 mg PO DAILY 09/03/19 09/03/19 olanzapine [Zyprexa] 10 mg PO QPM PRN 09/03/19 09/03/19 New Rx's Medication Instructions Recorded levothyroxine 100 mcg tablet 100 mcg PO DAILY #90 tab 06/22/19 aspirin 81 mg PO DAILY #30 tab 09/04/19 atorvastatin 40 mg PO QAM #30 tab 09/04/19 - Action: The above medications, specifically ones for stroke treatment/prophylaxis, have been reviewed in detail with the patient and/or patient education courses sales representative(s) prior to discharge. This includes indication, common adverse reactions, drug interactions, and medication administration. Medication counseling has been employed using the teach-back method to ensure understanding. - Outcome: The patient and/or patient education courses sales representative(s) have demonstrated understanding of the medications. Please note, they are aware that the pharmacist will call them within 72 hours post-discharge to confirm that the appropriate medications are being taken and answer any further medication related questions the patient might have at that time. Contact information Individual to be contacted: Fior Luna Relationship to patient (if applicable): self Phone number: [phone] (cell) Best time to call: any Additional comments: [] Thank you for allowing pharmacy to be involved in the care of this patient. Please call [phone] or [phone] with any additional questions
--- NOTE | 2019-09-04 14:55 | Discharge Summary ---
Date of Service September 04, 2019 Admission HPI Per Admitting Provider This is a 78-year-old female with past medical history of hyperlipidemia, bipolar disorder, depression that presents today complaining of a transient left-sided hemiparesis. Patient is good historian. Patient tells me she was feeling fine when she woke up at approximately 930 this morning. She noted that her left hand was flaccid. She could not move her arm but felt numb up to her left shoulder. She try to get out of bed and noted similar issue with her foot. She had no motor control in her left foot but her leg was only numb. She ambulated to the kitchen and tried heat and apple. At that time she noted that she had right-sided facial droop and was salivating herself. She was unable to treated for. When asked what she did next, she told me she sat down and thought about things for approximately 30 minutes when the symptoms resolved very quickly and completely. She tells me she called her daughter in [place] and discussed the case with her. She recommended calling her doctor. She then called her primary care physician's office and was advised to present to the emergency room for further evaluation. At the time of my evaluation, the patient is having no further neurological symptoms. She is in no cardiopulmonary distress was quietly reading a book. She denies any further facial droop, weakness, or other issues. She also denies any headache. Work-up so far has been negative. Admission Exam Per Admitting Provider Constitutional: cooperative; no acute distress Neck: trachea midline, no thyromegaly Respiratory: normal respiratory effort Auscultation: lungs clear to auscultation bilaterally; no crackles, no rales, no rhonchi and no wheezes Cardiovascular: Rate/Rhythm: regular rate and regular rhythm Heart Sounds: normal S1 and normal S2 Vessels: no JVD and no carotid bruit Gastrointestinal (Abdomen): Inspection/Auscultation: abdomen normal to inspection Percussion/Palpation: abdomen soft; abdomen nontender, no guarding, abdomen not rigid and no hepatosplenomegaly Skin: no rashes, warm and dry Neurologic: patellar DTR's 2+ bilat, sensation intact and PERRL, EOMI, accommodation nl, no face palsy, no dysarthria Principal Diagnosis TIA Discharge Exam General: awake, alert, no apparent distress Head: Normocephalic, atraumatic ENT: PERRL, EOMI, no pharyngeal exudate, mucous membranes moist Chest: Clear to auscultation, on room air, no adventitious breath sounds Cardiac: Regular rate and rhythm, no murmur, no JVD, normal peripheral pulses, good capillary refill Abdominal: NABS x 4 quadrants, soft, nontender to palpation, no rebound, guarding or tenderness Extremities: Normal inspection, no peripheral edema or erythema, calfs nontender to palpation Psych: Normal mood and affect Neuro: AAO x 3, strength intact bilaterally and related 5/5, no motor deficits, speech is clear, no peripheral sensory deficits Discharge Data Allergies Allergy/AdvReac Type Severity Reaction Status Date / Time Penicillins Allergy Unknown UNKN Verified 09/03/19 17:13 NSAIDS (Non-Steroidal AdvReac Intermediate HX OF ULCER Verified 09/03/19 17:13 Anti-Inflamma ampicillin AdvReac Unknown Verified 09/03/19 17:13 aripiprazole [From Abilify] AdvReac Unknown Verified 09/03/19 17:13 diphenhydramine AdvReac Unknown Verified 09/03/19 17:13 erythromycin base AdvReac Unresponsiv Verified 09/03/19 17:13 e lithium AdvReac Unknown Verified 09/03/19 17:13 Consultations 09/03/19 20:51 Consult Case Management - Discharge Planning Routine Consult Neurology Routine Ordered Studies 09/03/19 17:05 CT head/brain wo con Stat 09/03/19 20:51 MR angio head wo con Routine MR angio neck wo/w con Routine MR brain wo con Routine Hospital Course (1) TIA (transient ischemic attack): - Admitted under stroke protocol. - MRI/MRA of the brain and extracranial vessels were negative for acute findings but potentially showed left common carotid stenosis of 50% with mid-distal stenosis but this may have been artifact. - 2D echo completed with normal systolic function, EF= 60-65 %, no wall motion abnormalities. - Passed bedside swallowing eval,advance diet - Discussion was held regarding hx of GI bleed - pt notes this was over 10 years ago, where she was on high dose pain medication, likely NSAID like celebrix or mobic, and has a gastric ulcer seen on EGD. This resolved. She has had no further bleeding in over 10 years. We discussed this and she is agreeable to taking baby aspirin as the risk to having a stroke is greater than the risk of GI bleed. (2) Hyperlipidemia: Has hyperlipidemia noted in her history but does not appear to be on statin medication. - Lipid panel completed with total cholesterol of 173, will start on atorvastatin 40 mg daily. Pt is agreeable to this. (3) Hypothyroidism: Patient on levothyroxine 100 mcg daily, can continue as noted. (4) Bipolar 1 disorder: Patient is on fluoxetine along with Zyprexa nightly as needed. Total Time Total Time Spent Total Time Spent (In Minutes): 34 I did discuss this patient care with Shalini JOSEPH, patient is stable for discharge neurology did see the patient in bed at our discharge plan patient will follow-up in outpatient both her PCP and neurology Discharge Plan Discharge Items Patient Disposition: Home - Self-Care Reason For Visit: TIA Discharge Diagnosis: Transient ischemic attack ( TIA) Condition on Discharge: Good Activity: Resume your previous activity Lifting: Gradually increase as tolerated Bathing: No limitations Exercise/Sports: Gradually increase as tolerated Driving/Machine Use: No limitations Non-emergency contact: Primary Care Provider Call non-emergency contact if: your symptoms worsen, your pain is not controlled and you have a fever Follow-up/Referrals: Raúl Kong MD [Primary Care Provider] - Diet: Heart Healthy Addtl Attending Provider Instructions: You were admitted to [facility] due to Left hand and shoulder numbness, and Left foot numbness and difficulty moving and diagnosed with TIA, which is also known as a mini stroke. Your symptoms resolved prior to discharge. During your stay here you were treated with supportive care, medications and your symptoms improved. Imaging studies which were completed include MRI of the Brain, MRA of the neck and were negative. Medications: Continue taking you medications as prescribed. You have been started on a baby aspirin once daily and atorvastatin once daily. Appointments: Follow up with PCP within 2-4 weeks, you will be contacted to set up an appointment. Pending Studies at Discharge: No Stand-Alone Forms: Medications to Prevent Stroke, [employer], Smoking Cessation Medications and DC Order Prescriptions: New atorvastatin 40 mg Tablet 40 mg PO QAM Qty: 30 RF: 1 aspirin 81 mg tablet,delayed release (DR/EC) 81 mg PO DAILY Qty: 30 RF: 0 Continued levothyroxine 100 mcg tablet 100 mcg PO DAILY Qty: 90 RF: 3 acetaminophen [Tylenol Extra Strength] 500 mg tablet 500 - 1,000 mg PO Q6H PRN (Reason: byers/pain) RF: 0 Algae Michael 2 tabs PO BID RF: 0 fluoxetine 40 mg capsule 40 mg PO DAILY RF: 0 olanzapine [Zyprexa] 10 mg tablet 10 mg PO QPM PRN (Reason: Anxiety) RF: 0 Discharge Orders: Discharge Order (Routine); Ordered 09/04/19 Ordered By: Mahi Monge Admission Data Admit Date/Time: 09/03/19 19:31 Attending Provider: Valentino Childs Admit Provider: Javan Corea Primary Care Provider: Raúl Kong V. Other Providers: Samy Chao Other Interventions: Discharge Summary Assessment (RN) Last Done: 09/04/19 12:34 DC Date/Time DO NOT enter until pt leaves facility: 09/04/19 15:27 Coding Level of Care Code D/C Day Management >30 mins Diagnoses TIA (transient ischemic attack) G45.9 Hyperlipidemia E78.5 Hypothyroidism E03.9 Bipolar 1 disorder F31.9
--- NOTE | 2019-09-04 15:17 | Electrocardiogram Report ---
Test Reason : Blood Pressure : / mmHG Vent. Rate : 061 BPM Atrial Rate : 061 BPM P-R Int : 208 ms QRS Dur : 090 ms QT Int : 464 ms P-R-T Axes : 047 041 049 degrees QTc Int : 467 ms Normal sinus rhythm with 1st degree AV block Low voltage QRS Borderline ECG When compared with ECG of 06-SEP-2013 11:43, QT has lengthened Confirmed by Magdi Fisher ([id number]) on 09/04/2019 3:16:49 PM Referred By: REFERRED SELF Confirmed By:Wilman Fisher
--- NOTE | 2019-09-04 15:44 | Neurology Consultation ---
Date of Consultation September 04, 2019 Assessment & Plan (1) TIA (transient ischemic attack): Fior Luna is a 78 yo woman w/ PMH of HLD, hypothyroidism, bipolar disorder, MR, osteoporosis, vitamin D deficiency and h/o TIA who p/t [facility] w/ acute onset of LUE/LLE weakness and R FP. Symptom localization: right aleta Stroke mechanism: cardioembolic vs flow failure given hypotension Stroke WorkUp: - CT head: no hemorrhage or hypodensity, + for SVID - MRI brain: no acute infarct, mild to moderate SVID - MRA head/neck: no LVO, high grade stenosis or aneurysm - TTE: EF 60-65%, mild to moderate AR, mild MR, mild to moderate TR, atrial septal aneurysm present, + inter-atrial shunt - Telemetry: NSR to sinus justyna - A1c: 5.4 - FLP: 101 - Troponin: negative Stroke Management: - Acute treatment: ASA - Continuous cardiac monitoring, would recommend 7 day event monitor as an outpatient - Vitals, Neurochecks, NIHSS per unit routine - BP parameters: SBP CAP 180, goal normotension over next few 3-4 days - Consult speech, PT, OT for supportive management - Will retirement plan counselor concerning stroke education, smoking cessation, healthy diet, physical activity, weight loss - Follow up with PCP for assistance with outpatient goals (BP <135/85, LDL <70, A1c <7) - Follow up in neurology clinic in 6-8 weeks (can be telehealth visit as she reports having ability to get portal access at home) Secondary Stroke Prevention: - Antiplatelet: ASA 81mg po daily - Anticoagulation: Not indicated at this time - Statin: Atorvastatin 40mg daily HTN: - BP parameters, as above - EKG showed NSR with 1st degree AV block, troponin negative FEN/GI: - Diet: Cardiac HH diet and PO meds given absence of bulbar signs or symptoms - Monitor lytes and replete PRN Glucose Control: - Sliding scale insulin and accuchecks per primary team to avoid hyperglycemia Thank you for this interesting consult. Plan of care was discussed with primary team. Please call with any questions. (2) Hyperlipidemia: History of Present Illness Attending Physician: Valentino Childs MD History of Present Illness Fior Luna is a 78 yo woman w/ PMH of HLD, hypothyroidism, bipolar disorder, MR, osteoporosis, vitamin D deficiency and h/o TIA who p/t [facility] w/ acute onset of LUE/LLE weakness and R FP. 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 She called PCP about symptoms and reported to the ED in the afternoon after symptoms had resolved. In the ED, pt was afebrile, BP 127/67. HR 72, satting 98% on room air. Labs notable for WBC 5.89, Hb 13.1, Plts 239, Na 139, K 3.9, Cr 0.96, glucose 94, INR 1.1, LFTs WNL, troponin negative. CTH showed no hemorrhage or hypodensity, + SVID. MRI brain showed no acute infarct, mild to moderate SVID. MRA head and neck shows no LVO, high grade stenosis or aneurysm. She was admitted for TIA workup. On examination today, she reports that she is back to baseline with no recurrence of symptoms. Denied any recent illness, medication change. Does not smoke. Stroke Workflow: Where patient arrived from: home Time patient undergoes CT head: 17:05 on 09/02 Time patient undergoes advanced imagin:51 on 09/02 CT ASPECT: 10 Time IV tpa is given: NA If tpa not given, why not: Outside of time window, symptoms had resolved If delay >60min after hospital arrival, why: NA If no IA therapy, why not: No LVO on MRA, low NIHSS (0) Patient Features: Admission NIHSS: 0 Admission Modified Tamir Scale: 0-1 Time patient last seen well: midnight on 09/02/19 Wake up stroke: Yes Intubation status: Not intubated Stroke Risk Factors: Hypertension: N Hyperlipidemia: Y Atrial Fib: N Tobacco: N Diabetes: N Taking NOAC or warfarin: N Allergies Allergy/AdvReac Type Severity Reaction Status Date / Time Penicillins Allergy Unknown UNKN Verified 09/03/19 17:13 NSAIDS (Non-Steroidal AdvReac Intermediate HX OF ULCER Verified 09/03/19 17:13 Anti-Inflamma ampicillin AdvReac Unknown Verified 09/03/19 17:13 aripiprazole [From Abilify] AdvReac Unknown Verified 09/03/19 17:13 diphenhydramine AdvReac Unknown Verified 09/03/19 17:13 erythromycin base AdvReac Unresponsiv Verified 09/03/19 17:13 e lithium AdvReac Unknown Verified 09/03/19 17:13 Home Medications Home Medications Medication Instructions Recorded Confirmed Type acetaminophen 500 mg tablet 500 - 1,000 mg PO Q6H PRN 03/30/19 09/03/19 History levothyroxine 100 mcg tablet 100 mcg PO DAILY #90 tab 06/22/19 09/03/19 Rx Algae Michael 2 tabs PO BID 09/03/19 09/03/19 History fluoxetine 40 mg PO DAILY 09/03/19 09/03/19 History olanzapine [Zyprexa] 10 mg PO QPM PRN 09/03/19 09/03/19 History aspirin 81 mg PO DAILY #30 tab 09/04/19 Rx atorvastatin 40 mg PO QAM #30 tab 09/04/19 Rx Patient History Medical History Bipolar 1 disorder (Chronic) Cerebrovascular small vessel disease (Acute) Depression (Chronic) Hyperlipidemia (Acute) Hypothyroidism (Chronic) Intention tremor (Acute) Mitral regurgitation Osteoarthritis (Acute) Osteoporosis Osteoporosis Suicidal ideation (Resolved) Systolic murmur (Acute) TIA (transient ischemic attack) (Acute) Vitamin D deficiency disease (Acute) Surgical History S/P ovarian cystectomy S/P tubal ligation Family History Father Myocardial infarction Hypertension Mother Alcoholism Bipolar disorder Hypothyroidism Lung cancer Grandfather (Paternal) Cancer Grandmother (Paternal) Stroke Social History Preferred Language: Croatian Communication Ability: Effective Visual Impairment: No Limitations Hearing Ability: Normal Help Desk Assistant Required: No Beliefs That Will Affect Care: None marital status: Single Current Living Situation: Alone Current Living Situation Comment: lives in an apartment current occupational status: retired Feels Safe at Home: Yes Smoking Status: Never smoker Second Hand Exposure: Yes ; Hx Alcohol Use: Yes Alcohol type: wine Hx Substance Use: No Seatbelt Use: always Review of Systems Review of Systems: 14 point review of systems completed and negative except as in HPI. Exam (Neuro) Physical Exam: General Exam: GEN: NAD, sitting in chair HEENT: No conjunctival injection, no rhinorrhea. CV: RRR on monitor, no significant edema. PULM: Nonlabored respirations on room air. Neuro Exam: MS: Awake and Alert. Oriented to person, place, and date. Speech fluent and appropriate without dysarthria or paraphasic errors. Language intact including naming, comprehension, repetition. Cognition and memory grossly intact. Attention intact. No neglect. CN: Visual george full, + blink to threat bilaterally. No extinction to double simultaneous stimuli. Unable to visualize fundi on fundoscopic exam. PERRLA OU. EOMI without nystagmus. Facial sensation intact to LT. Facial muscles full and symmetric. Hearing intact to finger rub bilaterally. Uvula midline with symmetric palatal elevation. Shoulder shrug normal. Tongue midline. MOTOR: Normal bulk and tone. No pronator drift. BUE strength 5/5 at deltoids, biceps, triceps, wrist flexors and extensors, and finger flexors bilaterally. BLE strength 5/5 at iliopsoas, hamstrings, quadriceps, tibialis anterior, and gastrocnemius bilaterally. REFLEXES: 1+ at biceps, triceps, brachioradialis, 1+ patella, and trace Achilles bilaterally. Flexor plantar responses bilaterally. SENSORY: Intact to LT/vibration/temperature throughout, no extinction to double simultaneous stimuli. COORDINATION: No dysmetria or ataxia on [id number] bilaterally. Normal Carli bilaterally. GAIT: Deferred due to physical status. NIH STROKE SCALE 1A. Level of Consciousness (0-3) = 0 1B. LOC Questions (0-2) = 0 1C. LOC Commands (0-2) = 0 2. Best Horizontal Gaze (0-2) = 0 3. Visual George (0-3) = 0 4. Facial Palsy (0-3) = 0 5. Motor Arm Right (0-4) = 0 Left (0-4) = 0 6. Motor Leg Right (0-4) = 0 Left (0-4) = 0 7. Limb Ataxia (0-2) = 0 8. Sensory (0-2) = 0 9. Best Language (0-3) = 0 10. Dysarthria (0-2) = 0 11. Extinction and Inattention (0-2) = 0 NIHSS TOTAL = 0 Results & Data ([facility]) Vital Signs (Past 12 Hours) Vital Signs Temp Pulse Pulse Resp BP Pulse Ox 04/24/20 12:34 37.1 C 61 18 94/51 L 95 09/04/19 11:38 37.1 C 61 18 94/51 L 95 09/04/19 08:00 56 L 09/04/19 07:30 36.9 C 58 L 18 100/65 96 PG Care Time/CCT Total # of Minutes Spent Total Time Spent with Patient: Total time spent is greater than 50% in coordination of care (as documented) at patient's floor/unit and/or counseling patient: Coding Level of Care Code 29991 Initial Inpt Care Lvl 3 Diagnoses TIA (transient ischemic attack) G45.9 Hyperlipidemia E78.5
--- NOTE | 2019-09-07 15:34 | Pharmacy Report ---
Pharmacist Post D/C Phone Note - Phone Note: Date of phone call: September 07, 2019. The patient and/or patient veterans contact representative(s) were unable to be reached for a follow-up phone call within the 72 hour time frame. Discharge counseling pharmacist contact information has already been provided to the patient should questions arise. Thank you for allowing us to be involved in the care of this patient. - Home Medications: Home Medications Medication Instructions Recorded Confirmed acetaminophen 500 mg tablet 500 - 1,000 mg PO Q6H PRN 03/30/19 09/03/19 Algae Michael 2 tabs PO BID 09/03/19 09/03/19 fluoxetine 40 mg PO DAILY 09/03/19 09/03/19 olanzapine [Zyprexa] 10 mg PO QPM PRN 09/03/19 09/03/19 New Rx's Medication Instructions Recorded levothyroxine 100 mcg tablet 100 mcg PO DAILY #90 tab 06/22/19 aspirin 81 mg PO DAILY #30 tab 09/04/19 atorvastatin 40 mg PO QAM #30 tab 09/04/19
== END 2019-09-04 15:27 | disposition home or self-care (01) ==
LOC: ED 16:11 → 2W 16:11 → SUATTDRO 19:31 → 2W 20:25